=== PATIENT | male | born 1995 | race Caucasian/White ===

== ENCOUNTER 2017-11-03 14:10 | Emergency (ER) | payer BC ==
[2017-11-03] MEDS ORDERED: Sodium Chloride 0.9% 10 ML Syringe FLUSH PRN (15:12)
[2017-11-03] MEDS ORDERED: cefTRIAXone 1 GM in Sodium Chloride 0.9% 100 ML IV ONE (15:12)
--- NOTE | 2017-11-03 15:47 | EDM.PDOC ---
ED HPI GENERAL MEDICAL PROBLEM - General Chief Complaint: Bite:Animal, Insect Stated Complaint: INFECTED INSECT BITE Time Seen by Provider: 11/03/17 14:49 Source of Information: Reports: Patient History Limitations: Reports: No Limitations - History of Present Illness INITIAL COMMENTS - FREE TEXT/NARRATIVE: Patient is a 22-year-old male who presents to the ED complaining of a small sore /wound to the right anterior knee to the inferior border of the patella with increased redness noted. Patient states he awoke with a small pimple-like lesion to the inferior border of his patella on the anterior side. Attempted to pop it with a little production of any drainage. Over the course of the day the redness increased. Upon awakening Sunday had increased redness with increased pain on weightbearing. He was able to bend the knee freely with no issues. Had some intermittent fever/chills with no documented. Has been eating and drinking well. No nausea/vomiting. No history of MRSA. Today states the redness and pain has drastically improved. He has no past medical history. Currently taking no medications. Surgical history none. He does not smoke. Alcohol use occasionally. Recreational drug use none. Right Leg Pain Score (Numeric/FACES): 8 - Related Data Allergies Allergy/AdvReac Type Severity Reaction Status Date / Time No Known Allergies Allergy Verified 11/03/17 14:20 Home Meds: Home Meds Doxycycline [Vibramycin] 100 mg PO BID #20 cap 11/03/17 [Rx] Past Medical History - Past Health History Medical/Surgical History: Denies Medical/Surgical History Social & Family History - Family History Family Medical History: Noncontributory - Tobacco Use Smoking Status *Q: Never Smoker - Caffeine Use Caffeine Use: Reports: Coffee - Recreational Drug Use Recreational Drug Use: No ED ROS GENERAL - Review of Systems Review Of Systems: ROS reveals no pertinent complaints other than HPI. ED EXAM, ANIMAL BITE - Physical Exam Exam: See Below Exam Limited By: No Limitations General Appearance: Alert, WD/WN, No Apparent Distress Eye Exam: Bilateral Eye: PERRL Ears: Hearing Grossly Normal Nose: Normal Inspection Throat/Mouth: Normal Voice, No Airway Compromise Head: Atraumatic, Normocephalic Neck: Normal Inspection, Supple Respiratory/Chest: No Respiratory Distress, Lungs Clear, Normal Breath Sounds, No Accessory Muscle Use, Chest Non-Tender Cardiovascular: Normal Peripheral Pulses, Regular Rate, Rhythm Peripheral Pulses: 4+: Posterior Tibial (R) Extremities: Other (Small pimple like lesion to the inferior border of the right knee indurated with no fluctuance. Redness encompassing the upper anterior aspect of the lower leg. No pain with flexion/extension of the knee. No redness streaking up his leg. ) Neurological: Alert, Oriented, CN II-XII Intact, Normal Cognition, Normal Gait, No Motor/Sensory Deficits Psychiatric: Normal Affect, Normal Mood Course - Vital Signs Last Recorded V/S: Last Vital Signs Temp 98.2 F 11/03/17 14:21 Pulse 78 11/03/17 14:21 Resp 18 11/03/17 14:21 BP 143/83 H 11/03/17 14:21 Pulse Ox 99 11/03/17 14:21 - Orders/Labs/Meds Orders: Active Orders 24 hr Category Date Time Status Peripheral IV Care [RC] . DIRECTED Care 11/03/17 15:12 Active Peripheral IV Insertion Adult [OM.PC] Routine Oth 11/03/17 15:12 Ordered Labs: Laboratory Tests 11/03/17 11/03/17 11/03/17 Range/Units 15:05 15:05 15:05 WBC 16.05 H (4.23-9.07) K/mm3 RBC 5.55 (4.63-6.08) M/mm3 Hgb 17.3 (13.7-17.5) gm/L Hct 50.0 (40.1-51.0) % MCV 90.1 (79.0-92.2) fl MCH 31.2 (25.7-32.2) pg MCHC 34.6 (32.2-35.5) g/dl RDW Std Deviation 42.0 (35.1-43.9) fL Plt Count 226 (163-337) K/mm3 MPV 8.9 L (9.4-12.3) fl Neutrophils % (Manual) 78 H (40-60) % Band Neutrophils % 0 (0-10) % Lymphocytes % (Manual) 17 L (20-40) % Atypical Lymphs % 0 % Monocytes % (Manual) 5 (2-10) % Eosinophils % (Manual) 0 L (0.8-7.0) % Basophils % (Manual) 0 L (0.2-1.2) Platelet Estimate Adequate Plt Morphology Comment Normal RBC Morph Comment Normal Sodium 135 L (136-145) mEq/L Potassium 4.3 (3.5-5.1) mEq/L Chloride 99 (98-107) mEq/L Carbon Dioxide 28 (21-32) mEq/L Anion Gap 12.3 (5-15) BUN 19 H (7-18) mg/dL Creatinine 1.2 (0.7-1.3) mg/dL Est Cr Clr Drug Dosing 91.83 mL/min Estimated GFR (MDRD) > 60 (>60) mL/min BUN/Creatinine Ratio 15.8 (14-18) Glucose 105 (74-106) mg/dL Calcium 9.2 (8.5-10.1) mg/dL Total Bilirubin 0.8 (0.2-1.0) mg/dL AST 23 (15-37) U/L ALT 29 (16-63) U/L Alkaline Phosphatase 74 (46-116) U/L C-Reactive Protein 9.3 H* (<1.0) mg/dL Total Protein 7.9 (6.4-8.2) g/dl Albumin 4.1 (3.4-5.0) g/dl Globulin 3.8 gm/dL Albumin/Globulin Ratio 1.1 (1-2) Meds: Medications Discontinued Medications Generic Name Dose Route Start Last Admin Trade Name Freq PRN Reason Stop Dose Admin Doxycycline Hyclate 100 mg 11/03/17 16:09 11/03/17 16:18 Vibramycin PO 11/03/17 16:10 100 mg ONETIME ONE Administration Ceftriaxone Sodium 1 gm/ 100 mls @ 200 mls/hr 11/03/17 15:12 11/03/17 15:19 Sodium Chloride IV 11/03/17 15:41 200 mls/hr ONETIME ONE Administration Sodium Chloride 10 ml 11/03/17 15:12 11/03/17 15:21 Saline Flush FLUSH 10 ml ASDIRECTED PRN Administration Keep Vein Open - Re-Assessments/Exams Free Text/Narrative Re-Assessment/Exam: IV established with basic initial labs including: CBC, chem 14, and CRP. I ordered for Rocephin 1 g IV. Labs reviewed: White blood cell count 16.05, neutrophil percent 78, no left shift. CMP is essentially normal. CRP 9.3. IV rocephin completed. Ordered doxycycline 100mg PO. Patient is ready to be discharged home. The patient remained hemodynamically stable while under my care in the E.D. I discussed the concerning symptoms for which to return to the E.D. with the patient. The patient verbalized understanding. All questions were answered. Departure - Departure Time of Disposition: 16:16 Disposition: Home, Self-Care 01 Condition: Good Clinical Impression: Cellulitis Qualifiers: Site of cellulitis: extremity Site of cellulitis of extremity: lower extremity Laterality: right Qualified Code(s): L03.115 - Cellulitis of right lower limb - Discharge Information Prescriptions: Doxycycline [Vibramycin] 100 mg PO BID #20 cap Instructions: Cellulitis, Adult, [id number] Referrals: PCP,None [Primary Care Provider] - Forms: ED Department Discharge Additional Instructions: Take the full course of antibiotic as prescribed. Apply warm compresses to the affected area 4 times a day, 30 minutes in duration,. If draining keep covered. Take Tylenol and ibuprofen in alternating fashion for pain. Follow-up with primary care provider middle part of next week for reevaluation. Return to the ED if you develop any new or worsening symptoms. - My Orders Last 24 Hours: My Active Orders 11/03/17 15:12 Peripheral IV Care [RC] . DIRECTED Peripheral IV Insertion Adult [OM.PC] Routine - Assessment/Plan Last 24 Hours: My Active Orders 11/03/17 15:12 Peripheral IV Care [RC] . DIRECTED Peripheral IV Insertion Adult [OM.PC] Routine
[2017-11-03] MEDS ORDERED: Doxycycline 100 MG Cap PO ONE (16:09)
== END 2017-11-03 16:20 | disposition home or self-care (01) ==
LOC: JD.ED 14:10
DX: L03.115 Cellulitis of right lower limb (principal)
CPT/HCPCS: 36415; 80053; 85007; 85027; 86140; 96365; 99283; A9270; J0696; J7030; J7050; 99284